=== PATIENT | female | born 1965 | race African-American/Black ===

== ENCOUNTER 2022-03-19 00:55 | Emergency (ER) | payer MEDICAID ==
[~2022-03-19] VITALS: Ht 160 cm; Wt 134.9 kg
[2022-03-19] MEDS ORDERED: HYDROCODONE/ACETAMINOPHEN 5/325MG TABLET PO ONE (03:30)
[2022-03-19] MEDS ORDERED: IBUP-2029 MT (03:49)
[2022-03-19] MEDS ORDERED: CIPHCO LEFT EAR (03:49)
[2022-03-19] MEDS ORDERED: AZIT250T12 MT (03:49)
[2022-03-19] MEDS ORDERED: LORA10CA MT (03:49)
[2022-03-19 03:59] VITALS: BP 160/87
== END 2022-03-19 04:01 | disposition home or self-care (01) ==
LOC: ER 00:55
DX: H60.92 Unspecified otitis externa, left ear (principal); Z88.0 Allergy status to penicillin; Z86.73 Personal history of transient ischemic attack (TIA), and cerebral infarction without residual deficits; Z90.49 Acquired absence of other specified parts of digestive tract; Z98.890 Other specified postprocedural states
CPT/HCPCS: 99283